=== PATIENT | female | born 1980 | race Two or more races ===

== ENCOUNTER 2023-05-21 13:18 | Emergency (ER) | payer OTHER ==
[~2023-05-21] VITALS: Ht 167.6 cm; Wt 62.6 kg
[2023-05-21 15:25] VITALS: BP 99/63; TEMP 98; O2SAT 100
== END 2023-05-21 15:25 | disposition home or self-care (01) ==
LOC: ER 13:18
DX: S92.342A Displaced fracture of fourth metatarsal bone, left foot, initial encounter for closed fracture (principal); Z60.2 Problems related to living alone; X50.1XXA Overexertion from prolonged static or awkward postures, initial encounter; Y93.89 Activity, other specified; Y92.89 Other specified places as the place of occurrence of the external cause; Y99.8 Other external cause status
CPT/HCPCS: 73630-TC